=== PATIENT | male | born 1935 | race Caucasian/White ===

== ENCOUNTER 2016-10-29 11:56 | Emergency (ER) | payer MEDICARE, OTHER ==
[2016-10-29 15:36] LABS: BASOPHIL % 1.2 % (0-2); PLATELET COUNT 238 x10^3mcL (130-400)
[2016-10-29 15:40] LABS: RED CELL DISTRIBUTION WIDTH 14.6 % (11.5-14.5)
[2016-10-29 16:06] LABS: CALCIUM 9.5 mg/dL (8.5-10.1); CARBON DIOXIDE 27.7 mmol/L (21-32); CHLORIDE SERUM 104 mmol/L (98-107); CREATININE SERUM 1.6 mg/dL (0.7-1.3); GLUCOSE SERUM 121 mg/dL (74-106); POTASSIUM SERUM 4.1 mmol/L (3.5-5.1); SODIUM SERUM 140 mmol/L (136-145)
[2016-10-29 16:12] LABS: ALKALINE PHOSPHATASE 70 U/L (46-116); ALT/SGPT 22 U/L (16-63); AST/SGOT 16 U/L (15-37); BILIRUBIN TOTAL 0.49 mg/dL (0.20-1.00)
[2016-10-29 17:48] VITALS: BP 175/84
== END 2016-10-29 17:48 | disposition short-term general hospital (02) ==
LOC: ED 11:56
PROVIDERS: Emergency Medicine
DX: S01.01XA Laceration without foreign body of scalp, initial encounter (principal); I10 Essential (primary) hypertension; E11.9 Type 2 diabetes mellitus without complications; W18.09XA Striking against other object with subsequent fall, initial encounter; Y93.89 Activity, other specified; Y92.89 Other specified places as the place of occurrence of the external cause; Y99.8 Other external cause status
CPT/HCPCS: 36415; J2001

== ENCOUNTER 2016-11-01 08:56 | Emergency (ER) | payer MEDICARE, OTHER ==
[2016-11-01 10:03] LABS: CALCIUM 9.2 mg/dL (8.5-10.1); MAGNESIUM 1.9 mg/dL (1.8-2.4)
[2016-11-01 10:29] LABS: PLATELET COUNT 218 x10^3mcL (130-400)
[2016-11-01 10:30] LABS: RED CELL DISTRIBUTION WIDTH 15.1 % (11.5-14.5)
[2016-11-01 10:40] LABS: UA SPECIFIC GRAVITY <=1.005 (1.005-1.035); microscopic required? YES; urine erythrocyte 3+ (NEGATIVE)
[2016-11-01 10:47] LABS: BAND NEUTROPHIL 12 % (0-10); BASOPHIL 0 % (0-2); MONOCYTE 7 % (0-7); SEGMENTED NEUTROPHILS 71 % (37-75)
[2016-11-01 14:59] VITALS: BP 159/84
== END 2016-11-01 14:59 | disposition home or self-care (01) ==
LOC: ED 08:56
PROVIDERS: Emergency Medicine
DX: F07.81 Postconcussional syndrome (principal); I10 Essential (primary) hypertension; E11.9 Type 2 diabetes mellitus without complications; E78.00 Pure hypercholesterolemia, unspecified; N39.0 Urinary tract infection, site not specified
CPT/HCPCS: 83880; J2550; J7040; Q0092